=== PATIENT | female | born 1960 | race Caucasian/White ===

== ENCOUNTER 2018-04-12 17:53 | Inpatient (IN) | payer OTHER ==
[2018-04-12] MEDS: ASPIRIN 325 MG TAB PO (19:02)
[2018-04-12] MEDS: DILTIAZEM 25 MG INJ IV (19:03)
[2018-04-12] MEDS: SOD CHLORIDE 0.9% 500 ML IV (19:15)
[2018-04-12 19:17] LABS: ADD MAN DIFF? NO
[2018-04-12 19:20] LABS: BASOPHILS % 0.5 % (0.0-2.0); EOSINOPHILS # 0.2 10^3/ul (0.0-0.5); EOSINOPHILS % 2.5 % (0.0-7.0); HEMATOCRIT 41.8 % (37.0-47.0); HEMOGLOBIN 13.8 g/dl (12.0-16.0); LYMPHOCYTES # 1.6 10^3/ul (0.8-2.9); LYMPHOCYTES % 26.6 % (15.0-51.0); MEAN CORPUSCULAR HEMOGLOBIN 29.4 pg (29.0-33.0); MEAN CORPUSCULAR VOLUME 89.1 fl (82.0-101.0); MEAN PLATELET VOLUME 10.6 fl (7.4-10.4); MONOCYTE # 0.4 10^3/ul (0.3-0.9); MONOCYTES % 7.2 % (0.0-11.0); NEUTROPHIL # 3.8 10^3/ul (1.6-7.5); PLATELET COUNT 265 10^3/UL (140-415); RED BLOOD COUNT 4.69 10^6/ul (4.20-5.40); RED CELL DISTRIBUTION WIDTH 12.9 % (11.5-14.5)
[2018-04-12 19:34] LABS: INR 0.91; PROTIME 12.3 Sec (11.9-14.9)
[2018-04-12 19:35] LABS: ANION GAP 10 (8-16); BLOOD UREA NITROGEN 31 mg/dl (7-20); CALCIUM 8.9 mg/dl (8.4-10.2); CARBON DIOXIDE 28 mmol/L (21-31); CHLORIDE 108 mmol/L (97-110); CREATININE 0.93 mg/dl (0.44-1.00); GLUCOSE 112 mg/dl (70-220); PARTIAL THROMBOPLASTIN TIME 28.4 Sec (25.0-35.0); SODIUM 142 mmol/L (135-144)
[2018-04-12] MEDS: DILTIAZEM-D5W 125MG/125ML DRIP 125 ML IV (19:45)
[2018-04-12 19:47] LABS: B-TYPE NATRIURETIC PEPTIDE 1790 PG/ML (0-125)
[2018-04-12 19:53] LABS: FREE THYROXINE INDEX (Calc) 1.98 ug/ml (0.65-3.89); T3 UPTAKE 30.5 % (23.5-40.5); T4 (THYROXINE) 6.5 ug/dl (5.5-11.0)
[2018-04-13] MEDS: METOPROLOL 25 MG TAB PO ×3 (00:30→21:19)
[2018-04-13] MEDS ORDERED: NACL 0.9% 3 ML SYG IV (00:30)
[2018-04-13] MEDS ORDERED: NITROGLYCERIN (SL) 0.4 MG TAB SL (00:30)
[2018-04-13] MEDS ORDERED: ONDANSETRON 4 MG INJ IV (00:30)
[2018-04-13 03:03] LABS: CREATINE KINASE 148 IU/L (23-200)
[2018-04-13 03:16] LABS: CK INDEX 2.5; CK-MB 3.68 ng/ml (0.0-2.4); TROPONIN-I < 0.010 ng/ml (0.000-0.120)
[2018-04-13 06:29] LABS: ADD MAN DIFF? NO
[2018-04-13 06:33] LABS: WHITE BLOOD COUNT 4.8 10^3/ul (4.8-10.8)
[2018-04-13 06:33] LABS: BASOPHILS % 0.4 % (0.0-2.0); EOSINOPHILS # 0.2 10^3/ul (0.0-0.5); EOSINOPHILS % 4.4 % (0.0-7.0); HEMATOCRIT 40.9 % (37.0-47.0); HEMOGLOBIN 13.3 g/dl (12.0-16.0); LYMPHOCYTES # 1.3 10^3/ul (0.8-2.9); LYMPHOCYTES % 27.3 % (15.0-51.0); MEAN CORPUSCULAR HEMOGLOBIN 29.2 pg (29.0-33.0); MEAN CORPUSCULAR HGB CONC 32.5 g/dl (32.0-37.0); MEAN CORPUSCULAR VOLUME 89.9 fl (82.0-101.0); MEAN PLATELET VOLUME 10.7 fl (7.4-10.4); MONOCYTE # 0.3 10^3/ul (0.3-0.9); MONOCYTES % 5.3 % (0.0-11.0); NEUTROPHILS % 62.4 % (39.0-77.0); PLATELET COUNT 226 10^3/UL (140-415); RED BLOOD COUNT 4.55 10^6/ul (4.20-5.40); RED CELL DISTRIBUTION WIDTH 13.2 % (11.5-14.5)
[2018-04-13 06:53] LABS: CREATINE KINASE 135 IU/L (23-200)
[2018-04-13 06:56] LABS: ALANINE AMINOTRANSFERASE 29 IU/L (13-69); ALBUMIN 3.5 g/dl (3.3-4.9); ALBUMIN/GLOBULIN RATIO 1.29; ALKALINE PHOSPHATASE 47 IU/L (42-121); ANION GAP 9 (8-16); ASPARTATE AMINO TRANSFERASE 23 IU/L (15-46); BILIRUBIN,INDIRECT 0.4 mg/dl (0-1.1); BILIRUBIN,TOTAL 0.4 mg/dl (0.2-1.3); BLOOD UREA NITROGEN 23 mg/dl (7-20); CALCIUM 8.6 mg/dl (8.4-10.2); CARBON DIOXIDE 29 mmol/L (21-31); CHLORIDE 108 mmol/L (97-110); CREATININE 0.68 mg/dl (0.44-1.00); GLUCOSE 145 mg/dl (70-220); MAGNESIUM 1.8 mg/dl (1.7-2.5); POTASSIUM 3.7 mmol/L (3.5-5.1); SODIUM 142 mmol/L (135-144); TOTAL PROTEIN 6.2 g/dl (6.1-8.1)
[2018-04-13 07:03] LABS: CK INDEX 2.8; CK-MB 3.72 ng/ml (0.0-2.4); TROPONIN-I < 0.010 ng/ml (0.000-0.120)
[2018-04-13] MEDS: LEVOTHYROXINE 125 MCG TAB PO (07:09)
[2018-04-13] MEDS: ACETAMINOPHEN 325 MG TAB PO ×2 (07:09→14:35)
[2018-04-13] MEDS: ASPIRIN 81 MG TAB PO (09:30)
[2018-04-13] MEDS: ENOXAPARIN 40 MG/0.4 ML SYG SC (09:44)
[2018-04-13] MEDS: POTASSIUM CHLORIDE (SR) 20 MEQ TAB PO (18:47)
[2018-04-13] MEDS: MAGNESIUM SULFATE 2 GM/50 ML 50 ML IVPB (18:48)
[2018-04-14 05:37] LABS: ADD MAN DIFF? NO
[2018-04-14 05:50] LABS: BASOPHILS % 0.4 % (0.0-2.0); EOSINOPHILS # 0.2 10^3/ul (0.0-0.5); EOSINOPHILS % 3.8 % (0.0-7.0); HEMATOCRIT 40.6 % (37.0-47.0); HEMOGLOBIN 13.2 g/dl (12.0-16.0); LYMPHOCYTES # 1.2 10^3/ul (0.8-2.9); LYMPHOCYTES % 23.8 % (15.0-51.0); MEAN CORPUSCULAR HEMOGLOBIN 29.3 pg (29.0-33.0); MEAN CORPUSCULAR HGB CONC 32.5 g/dl (32.0-37.0); MEAN CORPUSCULAR VOLUME 90.2 fl (82.0-101.0); MEAN PLATELET VOLUME 10.4 fl (7.4-10.4); MONOCYTE # 0.3 10^3/ul (0.3-0.9); MONOCYTES % 6.5 % (0.0-11.0); NEUTROPHIL # 3.4 10^3/ul (1.6-7.5); NEUTROPHILS % 65.3 % (39.0-77.0); PLATELET COUNT 224 10^3/UL (140-415); RED CELL DISTRIBUTION WIDTH 13.1 % (11.5-14.5)
[2018-04-14 05:50] LABS: WHITE BLOOD COUNT 5.2 10^3/ul (4.8-10.8)
[2018-04-14 06:21] LABS: ANION GAP 11 (8-16); BLOOD UREA NITROGEN 22 mg/dl (7-20); CALCIUM 9.2 mg/dl (8.4-10.2); CARBON DIOXIDE 27 mmol/L (21-31); CHLORIDE 107 mmol/L (97-110); CREATININE 0.63 mg/dl (0.44-1.00); GLUCOSE 105 mg/dl (70-220); MAGNESIUM 2.1 mg/dl (1.7-2.5); PHOSPHORUS 4.4 mg/dl (2.5-4.9); POTASSIUM 4.5 mmol/L (3.5-5.1); SODIUM 140 mmol/L (135-144)
[2018-04-14] MEDS: LEVOTHYROXINE 125 MCG TAB PO (06:26)
[2018-04-14] MEDS: METOPROLOL 25 MG TAB PO (09:00)
[2018-04-14] MEDS: ASPIRIN 325 MG TAB PO (09:00)
[2018-04-14] MEDS: ENOXAPARIN 40 MG/0.4 ML SYG SC (09:00)
[2018-04-14] MEDS ORDERED: METOPROLOL 25 MG TAB PO (21:00)
== END 2018-04-14 16:52 | disposition home or self-care (01) | DRG 310 ==
LOC: MS4 22:55 → E/R 17:53 → MS4 20:15
DX: I48.0 Paroxysmal atrial fibrillation (principal); E89.0 Postprocedural hypothyroidism; F17.200 Nicotine dependence, unspecified, uncomplicated
CPT/HCPCS: 36415; 71045; 80048; 80053; 82550; 82553; 83735; 83880; 84100; 84436; 84443; 84479; 84484; 85025; 85610; 85730; 93005; 93306; 93971; 96374; 96375; 99291-25

== ENCOUNTER 2018-05-11 01:49 | Emergency (ER) | payer OTHER ==
[2018-05-11] MEDS: CLINDAMYCIN 600 MG INJ IM (03:12)
[2018-05-11] MEDS: CEFTRIAXONE 1 GM INJ IM (03:13)
[2018-05-11] MEDS: LIDOCAINE 1% (MDV) 20 ML INJ SC (03:13)
== END 2018-05-11 03:21 | disposition home or self-care (01) ==
LOC: FTE 01:49
DX: K04.7 Periapical abscess without sinus (principal); F17.210 Nicotine dependence, cigarettes, uncomplicated; Z79.82 Long term (current) use of aspirin
CPT/HCPCS: 96372; 99284-25

== ENCOUNTER 2018-06-04 09:14 | Observation (INO) | payer OTHER ==
[2018-06-04 09:31] LABS: ADD MAN DIFF? NO
[2018-06-04 09:36] LABS: BASOPHILS % 0.5 % (0.0-2.0); EOSINOPHILS # 0.3 10^3/ul (0.0-0.5); EOSINOPHILS % 4.6 % (0.0-7.0); HEMATOCRIT 43.4 % (37.0-47.0); HEMOGLOBIN 12.8 g/dl (12.0-16.0); LYMPHOCYTES # 1.5 10^3/ul (0.8-2.9); LYMPHOCYTES % 27.1 % (15.0-51.0); MEAN CORPUSCULAR HEMOGLOBIN 30.5 pg (29.0-33.0); MEAN CORPUSCULAR HGB CONC 29.5 g/dl (32.0-37.0); MEAN CORPUSCULAR VOLUME 103.3 fl (82.0-101.0); MEAN PLATELET VOLUME 10.9 fl (7.4-10.4); MONOCYTE # 0.3 10^3/ul (0.3-0.9); MONOCYTES % 5.7 % (0.0-11.0); NEUTROPHIL # 3.5 10^3/ul (1.6-7.5); NEUTROPHILS % 61.7 % (39.0-77.0); PLATELET COUNT 290 10^3/UL (140-415); RED CELL DISTRIBUTION WIDTH 14.2 % (11.5-14.5)
[2018-06-04 09:36] LABS: WHITE BLOOD COUNT 5.6 10^3/ul (4.8-10.8)
[2018-06-04] MEDS: METOPROLOL 5 MG INJ IV (09:40)
[2018-06-04] MEDS: ASPIRIN 325 MG TAB PO (09:41)
[2018-06-04 10:04] LABS: ALANINE AMINOTRANSFERASE 24 IU/L (13-69); ALBUMIN 4.1 g/dl (3.3-4.9); ALBUMIN/GLOBULIN RATIO 1.41; ALKALINE PHOSPHATASE 55 IU/L (42-121); ANION GAP 13 (8-16); ASPARTATE AMINO TRANSFERASE 27 IU/L (15-46); BILIRUBIN,INDIRECT 0.7 mg/dl (0-1.1); BILIRUBIN,TOTAL 0.7 mg/dl (0.2-1.3); BLOOD UREA NITROGEN 24 mg/dl (7-20); CALCIUM 8.9 mg/dl (8.4-10.2); CARBON DIOXIDE 27 mmol/L (21-31); CHLORIDE 106 mmol/L (97-110); CREATININE 0.82 mg/dl (0.44-1.00); GLUCOSE 180 mg/dl (70-220); POTASSIUM 3.9 mmol/L (3.5-5.1); SODIUM 142 mmol/L (135-144)
[2018-06-04 10:16] LABS: TROPONIN-I < 0.012 ng/ml (0.000-0.120)
[2018-06-04] MEDS: SOD CHLORIDE 0.9% 500 ML IV (11:45)
[2018-06-04] MEDS ORDERED: morphine 2 MG INJ IV (13:00)
[2018-06-04] MEDS ORDERED: ZOLPIDEM 5 MG TAB PO (13:00)
[2018-06-04] MEDS ORDERED: HYDROCODONE/APAP (5/325) TAB PO (13:00)
[2018-06-04] MEDS ORDERED: MAGNESIUM HYDROXIDE 30ML CUP PO (13:00)
[2018-06-04] MEDS ORDERED: DICYCLOMINE 10 MG CAP PO (13:00)
[2018-06-04] MEDS ORDERED: DOCUSATE SODIUM 100 MG CAP PO (13:00)
[2018-06-04] MEDS ORDERED: ONDANSETRON 4 MG INJ IV (13:00)
[2018-06-04] MEDS ORDERED: NACL 0.9% 3 ML SYG IV (13:00)
[2018-06-04] MEDS ORDERED: DILTIAZEM 25 MG INJ IV (17:30)
[2018-06-04] MEDS: MAGNESIUM SULFATE 2 GM/50 ML 50 ML IVPB (17:41)
[2018-06-04] MEDS: DIGOXIN 500 MCG INJ IV (17:41)
[2018-06-04 19:34] LABS: CREATINE KINASE 113 IU/L (23-200)
[2018-06-04 19:45] LABS: CK INDEX 2.1; CK-MB 2.32 ng/ml (0.0-2.4); TROPONIN-I < 0.012 ng/ml (0.000-0.120)
[2018-06-04] MEDS ORDERED: METOPROLOL 50 MG TAB PO (21:00)
[2018-06-04] MEDS: RIVAROXABAN 20 MG TABLET PO (21:06)
[2018-06-04] MEDS: ATORVASTATIN 40 MG TAB PO (21:06)
[2018-06-04] MEDS: SOTALOL 80 MG TAB PO (21:07)
[2018-06-05 01:13] LABS: CREATINE KINASE 99 IU/L (23-200)
[2018-06-05 01:27] LABS: CK INDEX 2.1; CK-MB 2.04 ng/ml (0.0-2.4); TROPONIN-I < 0.012 ng/ml (0.000-0.120)
[2018-06-05 06:52] LABS: ADD MAN DIFF? NO
[2018-06-05] MEDS: LEVOTHYROXINE 125 MCG TAB PO (06:55)
[2018-06-05 07:03] LABS: BASOPHILS % 0.6 % (0.0-2.0); EOSINOPHILS # 0.2 10^3/ul (0.0-0.5); EOSINOPHILS % 4.4 % (0.0-7.0); HEMATOCRIT 37.6 % (37.0-47.0); HEMOGLOBIN 12.6 g/dl (12.0-16.0); LYMPHOCYTES # 1.6 10^3/ul (0.8-2.9); MEAN CORPUSCULAR HEMOGLOBIN 29.8 pg (29.0-33.0); MEAN CORPUSCULAR HGB CONC 33.5 g/dl (32.0-37.0); MEAN CORPUSCULAR VOLUME 88.9 fl (82.0-101.0); MEAN PLATELET VOLUME 10.7 fl (7.4-10.4); MONOCYTE # 0.3 10^3/ul (0.3-0.9); MONOCYTES % 6.7 % (0.0-11.0); NEUTROPHIL # 2.9 10^3/ul (1.6-7.5); NEUTROPHILS % 57.1 % (39.0-77.0); PLATELET COUNT 259 10^3/UL (140-415); RED BLOOD COUNT 4.23 10^6/ul (4.20-5.40); RED CELL DISTRIBUTION WIDTH 13.2 % (11.5-14.5)
[2018-06-05 07:39] LABS: PHOSPHORUS 4.9 mg/dl (2.5-4.9)
[2018-06-05 07:54] LABS: FREE T4 (FREE THYROXINE) 0.88 ng/dl (0.64-1.79)
[2018-06-05 07:57] LABS: ALANINE AMINOTRANSFERASE 30 IU/L (13-69); ALBUMIN 3.5 g/dl (3.3-4.9); ALBUMIN/GLOBULIN RATIO 1.16; ALKALINE PHOSPHATASE 52 IU/L (42-121); ANION GAP 12 (8-16); ASPARTATE AMINO TRANSFERASE 22 IU/L (15-46); BILIRUBIN,INDIRECT 0.6 mg/dl (0-1.1); BILIRUBIN,TOTAL 0.6 mg/dl (0.2-1.3); BLOOD UREA NITROGEN 22 mg/dl (7-20); CALCIUM 8.6 mg/dl (8.4-10.2); CARBON DIOXIDE 28 mmol/L (21-31); CHLORIDE 106 mmol/L (97-110); CHOL/HDL RATIO 3.3 RATIO; CHOLESTEROL 153 mg/dl (100-200); CREATININE 0.72 mg/dl (0.44-1.00); GLUCOSE 100 mg/dl (70-220); HDL CHOLESTEROL 46 mg/dl (37-92); LDL CHOLESTEROL,CALCULATED 80 mg/dl; POTASSIUM 4.1 mmol/L (3.5-5.1); SODIUM 142 mmol/L (135-144); TOTAL PROTEIN 6.5 g/dl (6.1-8.1); TRIGLYCERIDES 137 mg/dl (0-149)
[2018-06-05 07:58] LABS: HEMOGLOBIN A1C 5.9 % (0-5.9)
[2018-06-05] MEDS: SOTALOL 80 MG TAB PO ×2 (08:33→18:34)
[2018-06-05] MEDS: RIVAROXABAN 20 MG TABLET PO (08:34)
[2018-06-05 08:41] LABS: FOLATE 7.9 ng/ml (2.8-20.0)
[2018-06-05] MEDS ORDERED: ASPIRIN 325 MG TAB PO (09:00)
[2018-06-05] MEDS: MAGNESIUM SULFATE 2 GM/50 ML 50 ML IVPB (09:48)
[2018-06-05] MEDS: ACETAMINOPHEN 325 MG TAB PO (09:59)
== END 2018-06-05 18:44 | disposition home or self-care (01) ==
LOC: E/R 09:14 → TEL 10:43
DX: I48.91 Unspecified atrial fibrillation (principal); E03.9 Hypothyroidism, unspecified; D75.89 Other specified diseases of blood and blood-forming organs; I10 Essential (primary) hypertension; Z79.82 Long term (current) use of aspirin; Z87.891 Personal history of nicotine dependence
CPT/HCPCS: 36415; 71045; 80053; 80061; 82550; 82553; 82607; 82746; 83036; 83735; 84100; 84439; 84443; 84484; 85025; 93005; 96374; 99285-25; G0378

== ENCOUNTER → 2019-05-22 | Outpatient (CLI) | payer OTHER ==
[2019-05-22 14:59] LABS: CREATININE 0.76 mg/dl (0.44-1.00)
[2019-05-22 14:59] LABS: BLOOD UREA NITROGEN 20 mg/dl (7-20)
== END | disposition home or self-care (01) ==
LOC: LAB 14:21
DX: R94.39 Abnormal result of other cardiovascular function study (principal)
CPT/HCPCS: 82565; 84520

== ENCOUNTER → 2019-06-12 | Outpatient (CLI) | payer OTHER ==
[~2019-06-12] MED LIST: METOPROLOL 5 MG INJ; NITROGLYCERIN AEROSOL (4.9 GM)
[2019-06-12] MEDS: IOHEXOL 100 ML (11:23)
[2019-06-12] MEDS: SOD CHLORIDE 0.9% 100 ML (11:23)
== END | disposition home or self-care (01) ==
LOC: C/S 09:59
DX: R94.39 Abnormal result of other cardiovascular function study (principal)
CPT/HCPCS: 75571; 75571-59; 75574